=== PATIENT | male | born 1990 | race African-American/Black ===

== ENCOUNTER → 2017-03-14 | Outpatient (CLI) | payer BC ==
[~2017-03-14] MED LIST: FLEXERIL PO; MOBIC PO
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
== END | disposition home or self-care (01) ==
LOC: CRAD 15:21
DX: M54.5 Low back pain (principal)
CPT/HCPCS: 72110